=== PATIENT | female | born 1960 | race Caucasian/White ===

== ENCOUNTER 2017-02-24 20:04 | Emergency (ER) | payer OTHER ==
[2017-02-24 22:52] LABS: BASOPHIL 0.3 % (0-2); EOSINOPHIL 1.8 % (0-5); HCT 45.2 % (37.0-47.0); HGB 15.2 g/dl (12.5-16.0); MCH 29.6 pg (25.0-31.0); MCHC 33.6 g/dL (32.0-36.0); MCV 87.9 fL (78.0-100.0); MONOCYTE 8.7 % (0-12); MPV 10.4 fL (6.0-9.5); NEUTROPHIL 58.2 % (41-80); PLT 251 K/uL (150-400); RBC 5.14 M/uL (4.20-5.40); RDW 13.2 % (11.5-14.0); WBC 10.7 K/uL (4.0-10.5)
[2017-02-24 22:53] LABS: BILIRUBIN NEGATIVE (NEGATIVE); BLOOD NEGATIVE Ery/uL (NEGATIVE); CLARITY CLEAR (CLEAR); COLOR YELLOW (YELLOW); GLUCOSE (U) NORMAL (NORMAL); KETONE (U) NEGATIVE (NEGATIVE); LEUKOCYTES NEGATIVE Leu/uL (NEGATIVE); NITRITE NEGATIVE (NEGATIVE); PROTEIN NEGATIVE (NEGATIVE); SPECIFIC GRAVITY <=1.005 (1.001-1.030); UROBILINOGEN 0.2 mg/dL (0.2-1.0); pH 5.5 (5.0-9.0)
[2017-02-24 23:08] LABS: ALBUMIN 4.3 g/dL (3.5-5.0); BILIRUBIN - TOTAL 0.4 mg/dL (0.1-1.0); CREATININE 0.9 mg/dL (0.5-1.0); LACTIC ACID 2.2 mmol/L (0.5-2.2); POTASSIUM 3.5 mmol/L (3.5-5.1); TOTAL PROTEIN 7.3 g/dL (6.4-8.3)
== END 2017-02-25 00:27 | disposition home or self-care (01) ==
LOC: FER 20:04
PROVIDERS: Emergency Medicine
DX: K29.00 Acute gastritis without bleeding (principal); R19.7 Diarrhea, unspecified; E78.5 Hyperlipidemia, unspecified; M54.9 Dorsalgia, unspecified; G89.29 Other chronic pain; E07.9 Disorder of thyroid, unspecified; F17.210 Nicotine dependence, cigarettes, uncomplicated; Z79.899 Other long term (current) drug therapy; Z87.19 Personal history of other diseases of the digestive system; Z98.890 Other specified postprocedural states
CPT/HCPCS: 36415; 80053; 81003; 83605; 83690; 84484; 85025; 87040; 93005; C9113